=== PATIENT | female | born 1995 | race Two or more races ===

== ENCOUNTER 2017-10-09 03:24 | Emergency (ER) | payer OTHER ==
[2017-10-09] MEDS ORDERED: AMOXICILLIN/K CLAV 875/125MG TABLET. PO (04:15)
[2017-10-09] MEDS: HYDROcodone/APAP 5/325MG 1 TAB TABLET PO (04:32)
== END 2017-10-09 04:35 | disposition home or self-care (01) ==
LOC: ER 03:24
DX: T70.0XXA Otitic barotrauma, initial encounter (principal); H66.93 Otitis media, unspecified, bilateral; Z91.018 Allergy to other foods; X58.XXXA Exposure to other specified factors, initial encounter
CPT/HCPCS: 99283